=== PATIENT | female | born 1975 ===

== ENCOUNTER 2016-07-24 20:31 | Emergency (ER) | payer OTHER ==
[2016-07-24 20:48] VITALS: BMI 24.8
[2016-07-24 21:29] LABS: RBC URINE 1575 /hpf (0-3); URINE BACTERIA RARE (<OCC); URINE BILIRUBIN NEGATIVE (NEGATIVE); URINE BLOOD LARGE (NEGATIVE); URINE COLOR YELLOW (YELLOW); URINE GLUCOSE (UA) NEG (Normal); URINE KETONE NEGATIVE (NEGATIVE); URINE LEUKOCYTE ESTERASE SMALL Leu/uL (Negative); URINE PROTEIN 30 mg/dL (NEGATIVE); URINE UROBILINOGEN 0.2-1.0 mg/dL (0.2-1.0); WBC URINE 30 /hpf (0-5)
[2016-07-24] MEDS ORDERED: Ampicillin 2 GM in Sodium Chloride 0.9% 100 ML IVPB ONE (22:30)
--- NOTE | 2016-07-25 08:16 | OBDCSUM ---
Datetime: 07/25/2016 00:08 Discharged to, Provider: Home Follow up at, Provider: Dr. Terry Disch Instr Activity: Normal activity Disch Instr Diet: Regular Discharge Time: 07/25/2016 00:08 Follow up in weeks, Provider: next scheduled appt in 2 weeks Disch Referrals: None Disch Activity Restrictions: No sexual activity; Nothing in vagina - [place], tampons, douche Discharge Comment, Provider: Pt given IV Ampicillin Discharge Diagnosis Prov Other: Hematuria/UTI
--- NOTE | 2016-07-25 08:16 | OBHP ---
Datetime: 07/24/2016 21:00 IP Adm Impression: , intrauterine IP Admit Plan: Observation/Evaluation Admit Comment, IP Provider: IUP at 33w c/o vaginal bleeding since earlier today. She noticv ed more when she urinates and wipes. No pain. No CTX. no SROM. +FM Called by Dr Terry (PMD that she was coming in)... 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 Pool Provider: Negative IP Hx Assessment: The History has been Reviewed and is Current IP Chief Complaint: Vaginal bleeding NICHD Variability Prov Fetus A: Moderate 6-25bpm NICHD Accel Fetus A IP Provider: [id number] FHR Category Provider Fetus A: Category I NICHD Decel Fetus A IP Provider: None Dilatation, Provider: 0
--- NOTE | 2016-07-25 08:27 | OBHP ---
Datetime: 07/24/2016 21:00 Comments, ACOG Physical Exam: Speculum exam: external no VB noted; vagina no blood/no discharge Cx closed: no blood seen Upon taking out speculum, some blood noted outside vagina around inner labia anteriorly/rebeca ureth ral area; cleaned with gauze pad and not blood noted. ROS: General: no weakness; no fatigue HEENT: no GORE; no visual dist CV: no palpitations; no no CP GI: noN/V no diarhea No epigastric pain; non radiating : no F/U/D MS: No joint pain
[2016-07-25] MEDS ORDERED: Ampicillin 2 GM in Sodium Chloride 0.9% 100 ML IVPB ONE (22:21)
[2016-07-31 16:18] LABS: URINE BILIRUBIN NEGATIVE (NEGATIVE); URINE BLOOD LARGE (NEGATIVE); URINE COLOR YELLOW (YELLOW); URINE GLUCOSE (UA) NEG (Normal); URINE KETONE NEGATIVE (NEGATIVE); URINE LEUKOCYTE ESTERASE LARGE Leu/uL (Negative); URINE PROTEIN 30 mg/dL (NEGATIVE); URINE UROBILINOGEN 0.2-1.0 mg/dL (0.2-1.0); WBC URINE 152 /hpf (0-5)
== END 2016-07-25 00:15 | disposition home or self-care (01) ==
LOC: H.EROB2 20:31
DX: O23.43 Unspecified infection of urinary tract in pregnancy, third trimester (principal); O26.93 Pregnancy related conditions, unspecified, third trimester; R31.9 Hematuria, unspecified; Z3A.33 33 weeks gestation of pregnancy

== ENCOUNTER 2016-07-31 13:57 | Emergency (ER) | payer OTHER ==
--- NOTE | 2016-07-31 14:56 | OBHP ---
Datetime: 07/31/2016 14:43 IP Adm Impression: , intrauterine IP Adm Impression Other: hx of vaginal bleeding IP Admit Plan: Observation/Evaluation Admit Comment, IP Provider: Pt was seen last wk for same and tx'd with po Keflex which she is almost finished, still with some dysuria and frequency and "blood per vagina" Denies C/F Will send U/a and C/S and monitor Extremities - PN: Normal Abdomen - PN: Abnormal Breast - PN: Normal Lungs - PN: Normal Thyroid - PN: Normal Neurologic - PN: Normal HEENT - PN: Normal General - PN: Normal FHR - Baseline A Provider: 140's Membranes, Provider: Intact Contraction Comments Provider: irreg mild Comments, ACOG Physical Exam: abd soft gravid NT fundus NT no CVA tenderness, Ext gen no sign of act magda bleeding SVE no blood or bloody discharge in vagina, no bleeding noted pr os. Ext no calf tender ness Gestation - Est Wks by US: 34 wks 4 d IP Chief Complaint: Vaginal bleeding NICHD Decel Fetus A IP Provider: None Dilatation, Provider: closed Effacement, Provider: no Station, Provider: H Genitourinary Exam: Normal DTRs - PN: Normal
[2016-07-31] MEDS ORDERED: Ampicillin 2 GM in Sodium Chloride 0.9% 100 ML IVPB ONE (16:40)
== END 2016-07-31 18:30 | disposition home or self-care (01) ==
LOC: H.EROB2 13:57
DX: O47.03 False labor before 37 completed weeks of gestation, third trimester (principal); Z3A.36 36 weeks gestation of pregnancy

== ENCOUNTER 2016-08-25 13:26 | Inpatient (IN) | payer OTHER ==
[2016-08-25 13:48] VITALS: BMI 23.6
[2016-08-25] MEDS: Lactated Ringer's 1,000 ML IV SCH ×2 (14:00→22:00)
[2016-08-25 14:13] VITALS: TEMP 98.3
--- NOTE | 2016-08-25 14:56 | OBHP ---
Datetime: 08/25/2016 14:00 IP Adm Impression: Term, intrauterine ; Active labor IP Admit Plan: Admit to unit; Initiate labor protocol Admit Comment, IP Provider: [id number] IUP at 38w decreased FM and occ CTX; no SROM; no VB; +FM.... she was checked in office and sent in 3-4cm dilated. care CP Dr Tong MONZON..Hx UTI treated with Macropbid PMH: breast abscess / childhood asthma POBGYH: HPV; x 2 PSH: breast implants NKA PSOH: denies smoking ETOH drugs A; IUP at 38w early labor elevated BP PLAN: admit; discussion about labor...elavted BP - spoke to Dr RA ramos order pre-eclampsia labs monitor progress Pelvic Type - PN: Adequate Extremities - PN: Normal Abdomen - PN: Normal Back - PN: Normal Breast - PN: Not Done Lungs - PN: Normal Heart - PN: Normal Thyroid - PN: Normal Neurologic - PN: Normal HEENT - PN: Normal General - PN: Normal Presentation-Admit: Vertex Membranes, Provider: Intact Contraction Comments Provider: + Comments, ACOG Physical Exam: ROS: General: no fatigue no weakness HEENT: no GORE; no visual dist CV: no CP; no palpitaions Resp: no OSb; no cough GI: No N/V/D : No F/U/D MS: no joint pain Pool Provider: Negative IP Hx Assessment: The History has been Reviewed and is Current EGA AdmitDate IP: 29.5 Vital Signs Provider: Reviewed Vital Signs Provider Details: elevated BP IP Chief Complaint: Uterine contractions; Decreased movement Dilatation, Provider: 4 Effacement, Provider: 50 Station, Provider: -1 Genitourinary Exam: Normal DTRs - PN: Normal
[2016-08-25 15:23] LABS: BASO % 0.5 % (0.0-2.0); EOS # 0.3 K/uL (0.0-0.7); EOS % 3.3 % (0.0-4.0); HEMATOCRIT 38.5 % (34.0-47.0); LYMPH # 2.6 K/uL (1.0-4.3); LYMPH % 24.4 % (20.0-40.0); MEAN CELL VOLUME 84.7 fl (81.0-99.0); MEAN CORPUSCULAR HEMOGLOBIN 28.6 pg (27.0-31.0); MEAN CORPUSCULAR HGB CONC 33.8 g/dL (33.0-37.0); MEAN PLATELET VOLUME 10.9 fl (7.2-11.7); MONO # 0.4 K/uL (0.0-0.8); MONO % 3.6 % (0.0-10.0); NEUT # 7.2 K/uL (1.8-7.0); NEUT % 68.2 % (50.0-75.0); NRBC % 0.1 % (0.0-0.0); RED CELL DISTRIBUTION WIDTH 13.6 % (11.5-14.5); WHITE BLOOD COUNT 10.6 K/uL (4.8-10.8)
[2016-08-25 15:29] LABS: ALB/GLOB RATIO 1.1 (1.0-2.1); ALKALINE PHOSPHATASE 190 U/L (38-126); ALT/SGPT 31 U/L (9-52); AST/SGOT 32 U/L (14-36); BILIRUBIN,TOTAL 0.2 mg/dl (0.2-1.3); BLOOD UREA NITROGEN 10 mg/dl (7-17); CARBON DIOXIDE 21 mmol/L (22-30); CHLORIDE 106 mmol/L (98-107); GFR AFRICAN-AMERICAN > 60; GLUCOSE,RANDOM 82 mg/dL (65-105); SODIUM 138 mmol/l (132-148); TOTAL PROTEIN 7.4 G/DL (6.3-8.2); URIC ACID 6.4 mg/Dl (2.2-7.5)
[2016-08-25] MEDS ORDERED: Oxytocin 30 units/LR 500ML 30 U/500 ML BAG IV ONE (17:28)
[2016-08-25] MEDS ORDERED: Oxytocin 30 units/LR 500ML 30 U/500 ML BAG IV SCH (17:40)
[2016-08-25 17:48] VITALS: BP 141/89; PULSE 68; RESP 18; O2SAT 98
--- NOTE | 2016-08-25 18:07 | OBPN ---
Datetime: 08/25/2016 17:35 IP Progress Impression: Reactive non-stress test IP Progress Note Comment: Notifed that she was 4cm dilated...spoke to Dr Terry..will start Pitocin augmentation...discusse d with pt and she agrees Datetime: 08/25/2016 14:00 Pool Provider: Negative Membranes, Provider: Intact Contraction Comments Provider: + Presentation-Admit: Vertex Vital Signs Provider: Reviewed Vital Signs Provider Details: elevated BP Dilatation, Provider: 4 Effacement, Provider: 50 Station, Provider: -1 Datetime: 07/31/2016 14:43 FHR - Baseline A Provider: 140's Gestation - Est Wks by US: 34 wks 4 d NICHD Decel Fetus A IP Provider: None Datetime: 07/24/2016 21:00 NICHD Accel Fetus A IP Provider: 15X15 FHR Category Provider Fetus A: Category I NICHD Variability Prov Fetus A: Moderate 6-25bpm
[2016-08-25 19:41] LABS: PARTIAL THROMBOPLASTIN TIME 28.1 SECONDS (23.3-32.5)
[2016-08-25] MEDS ORDERED: Fentanyl/Bupivacaine HCl 250 ML EPI ONE (22:07)
[2016-08-25] MEDS ORDERED: Lidocaine 1% Inj (20ml) ONE (22:25)
--- NOTE | 2016-08-26 02:12 | OBDS ---
DELIVERY PERSONNEL Delivery Doctor: Kristine Terry MD MATERNAL INFORMATION Delivery Anesthesia: Epidural Maternal Complications: None Provider Comments: Delivered a living baby girl appears term cried spontaneously, 9/9, AF oziel r LABOR SUMMARY EDC: 09/07/2016 00:00 No. Babies in Womb: 1 LABOR INFORMATION Reason for Induction: Not Applicable Onset of Labor: 08/25/2016 21:05 Oxytocin: Augmentation Steroids Given: None Reason Steroids Not Administered: Not Applicable Other Reason Not Administered: n/a MEMBRANES Membranes Rupture Method: Artificial Rupture of Membranes: 08/25/2016 21:05 Amniotic Fluid Color: Clear Amniotic Fluid Amount: Moderate Amniotic Fluid Odor: Normal VAGINAL DELIVERY Episiotomy: None Laceration Extension: N/A Laceration Type: None Laceration Repair: Not Applicable Laceration Repair Note: none Sponge Count Correct: Yes Sharps Count Correct: N/A Count Comment: count correct CSECTION DELIVERY Primary Indication: N/A Secondary Indication: N/A CSection Urgency: N/A CSection Incidence: N/A Labor: N/A Elective: N/A CSection Incision: N/A Uterine Closure: N/A
[2016-08-26] MEDS ORDERED: Oxycodone/Acetaminophen 5/325 mg Tab PO PRN ×2 (02:25→05:05)
[2016-08-26] MEDS ORDERED: Oxytocin 30 units/LR 500ML 30 U/500 ML BAG IV SCH (02:25)
[2016-08-26 06:53] LABS: HEMATOCRIT 36.1 % (34.0-47.0); MEAN CELL VOLUME 85.2 fl (81.0-99.0); MEAN CORPUSCULAR HEMOGLOBIN 28.3 pg (27.0-31.0); MEAN CORPUSCULAR HGB CONC 33.2 g/dL (33.0-37.0); RED CELL DISTRIBUTION WIDTH 13.6 % (11.5-14.5); WHITE BLOOD COUNT 15.7 K/uL (4.8-10.8)
--- NOTE | 2016-08-26 22:25 | CP.PCM.PN ---
Subjective - Date & Time of Evaluation Date of Evaluation: 08/26/16 Time of Evaluation: 20:00 - Subjective Subjective: Pt was evaulated for possible spinal GORE due to epidural done earlier. Pt has denied any headaches for at least 12 hours now. Epidural catheter is removed ( tip intact). Advised patient to inform nurse if she develops any headaches during her stay. Objective - Vital Signs/Intake and Output Vital Signs (last 24 hours): Temp Pulse Resp BP Pulse Ox 98.3 F 68 18 141/89 98 08/25/16 17:46 08/25/16 17:46 08/25/16 17:46 08/25/16 17:46 08/25/16 17:46 - Medications Medications: Current Medications Docusate Sodium (Colace) 100 mg PO BID STEPHIE Last Admin: 08/26/16 09:13 Dose: 100 mg Oxytocin (Pitocin 20 Units In Lr) 1,000 mls @ 125 mls/hr IV .Q8H STEPHIE Ibuprofen (Motrin Tab) 600 mg PO Q6 PRN PRN Reason: Pain, Mild (1-3) Last Admin: 08/26/16 20:19 Dose: 600 mg Oxycodone/Acetaminophen (Percocet 5/325 Mg Tab) 1 tab PO Q4 PRN PRN Reason: Pain, moderate (4-7) Stop: 08/29/16 02:26 - Labs Labs: 08/26/16 06:33 08/25/16 15:09 PT 9.7 SECONDS (9.6-11.2) 08/25/16 15:09 INR 0.93 (0.92-1.08) 08/25/16 15:09 APTT 28.1 SECONDS (23.3-32.5) 08/25/16 15:09
--- NOTE | 2016-08-27 07:21 | OBPPN ---
Datetime: 08/27/2016 07:16 PP Pain Prov comment: no SOB, chest pain or leg pain PP Nausea Prov: Denies PP Flatus Prov: Yes PP BM Prov: Yes PP Breasts Prov: Abnormal PP Heart Prov: Normal PP Lungs Prov: Normal PP Abdomen/Uterus Prov: Abnormal PP Lochia Prov: Normal PP Vulva/Perineum Prov: Normal PP CVA Tenderness Prov: Normal PP Extremities Prov: Normal PP C/S Incision Prov: Not Applicable PP Progress Prov: Normal PP Comments Phys Exam Prov: breast not engorged but full and breast feeding Abd soft not tender fun dus firm below the umb NT ext no edema or calf tenderness PP Impression Prov: Normal progression PP Plan Prov: Continue present management PP Progress Note Prov: continue pp care and increase po fluids IP PP Procedures: None Vital Signs Provider PP: Reviewed Datetime: 08/27/2016 07:14 PP Pain Prov: Within normal limits
--- NOTE | 2016-08-28 11:14 | OBPPN ---
Datetime: 08/28/2016 11:08 PP Pain Prov: Within normal limits PP Pain Prov comment: no SOB, chest pains or leg pains PP Nausea Prov: Denies PP Flatus Prov: Yes PP BM Prov: Yes PP Nausea Prov comment: Headaches much improved PP Breasts Prov: Abnormal PP Lungs Prov: Normal PP Abdomen/Uterus Prov: Abnormal PP Lochia Prov: Normal PP Vulva/Perineum Prov: Normal PP CVA Tenderness Prov: Normal PP Extremities Prov: Normal PP C/S Incision Prov: Not Applicable PP Progress Prov: Normal PP Comments Phys Exam Prov: Breast not engorged NT breast feeding Abd soft ND fundus firm below the umb NT, ext no calf tenderness PP Impression Prov: Normal progression PP Plan Prov: Discharge PP Impression Other Prov: spinal headache improved PP Progress Note Prov: Pt request D/C home since improved headaches and stable vs will D/C home with instructions and increased po fluids Follow up in office IP PP Procedures: None Vital Signs Provider PP: Reviewed
--- NOTE | 2016-08-28 11:16 | OBDCSUM ---
Datetime: 08/28/2016 11:12 Discharged to, Provider: Home Follow up at, Provider: Dr Terry Disch Instr Activity: Bedrest; May be up to bathroom; May be up for meals; May Shower Disch Instr Diet: Regular Discharge Instructions, Provider: Routine instructions given Discharge Diagnosis, Provider: Term Delivered Discharge Time: 08/28/2016 11:12 Follow up in weeks, Provider: 4 wks Contraception discussed, Prov: Yes Disch Activity Restrictions: No exercising; No lifting; No driving; Minimize walking; Minimize stair -climbing; No sexual activity; Nothing in vagina - [place], tampons, douche Discharge Comment, Provider: instrucitons given increased po fluids and call immediatly if headaches come back or persist. Understands and agreed Discharge Diagnosis Prov Other: spinal headache improved Contraception after Delivery: Undecided
== END 2016-08-28 12:32 | disposition home or self-care (01) | DRG 775 ==
LOC: H.EROB2 13:26 → H.L&D 13:48 → H.OB/GYN 08-26 04:30
PROVIDERS: ADMIT Specialist; ATTEND Specialist
PROC: 4A1HXCZ Monitoring of Products of Conception, Cardiac Rate, External Approach (ICD-10-PCS; 2016-08-25)
PROC: 10E0XZZ Delivery of Products of Conception, External Approach (ICD-10-PCS; principal; 2016-08-26)
DX: O36.8130 Decreased fetal movements, third trimester, not applicable or unspecified (principal); O69.81X0 Labor and delivery complicated by cord around neck, without compression, not applicable or unspecified; Z37.0 Single live birth; Z3A.38 38 weeks gestation of pregnancy; Z87.440 Personal history of urinary (tract) infections; Z98.82 Breast implant status